=== PATIENT | female | born 1965 | race American Indian/Alaskan Native ===

== ENCOUNTER 2019-06-22 15:36 | Emergency (ER) | payer OTHER ==
[2019-06-22 16:28] LABS: Basophils # (Auto) 0.1 K/mm3 (0.0-0.1); Basophils % (Auto) 0.6 % (0.0-1.8); Eosinophils % (Auto) 0.1 % (0.0-4.3); Hematocrit 44.6 % (30.3-42.9); Hemoglobin 15.1 gm/dl (10.1-14.3); Lymphocytes # (Auto) 1.5 K/mm3 (1.2-5.4); Lymphocytes % (Auto) 13.4 % (13.4-35.0); Mean Corpuscular HGB Conc 34 % (30-34); Mean Corpuscular Volume 92 fl (79-97); Monocytes # (Auto) 0.4 K/mm3 (0.0-0.8); Platelet Count 320 K/mm3 (140-440); Red Blood Count 4.84 M/mm3 (3.65-5.03)
[2019-06-22] MEDS ORDERED: ATIVAN IV STA (16:35)
--- NOTE | 2019-06-22 16:36 | Emergency Department Report ---
ED General Adult HPI - General Chief complaint: Altered Mental Status Stated complaint: NERVE PAIN Time Seen by Provider: 06/22/19 16:01 Source: patient, family, EMS (EMS documentation not available at the time of chart dictation), RN notes reviewed Mode of arrival: Wheelchair Limitations: Altered Mental Status, Physical Limitation - History of Present Illness Initial comments: This is a 53-year-old female. The patient is not known to this provider p reviously. The patient typically follows with the [facility]. History obtained from the patient's daughter, as the patient is altered, and not able to provide much history. As per the patient's daughter, the patient has been having " butt pain." Apparently, the pain has been radiating to her right toe. The patient was seen at another hospital this past Saturday, and was purportedly prescribed baclofen. The patient also takes lisinopril. The patient's daughter states that there are no other new or different medications. The patient cannot describe the nature of her pain to me she cannot describe exacerbating or relieving factors. When asked open-ended underclothes ended questions, she simply states "my butt hurts." The patient's daughter is not sure the patient's last known well time. She thinks that the patient had a normal conversation sometime between 9 and 10:00 this morning. No fevers, loss of consciousness, vomiting, urinary symptoms, diarrhea that the family is aware of. -: unknown Radiation: other Quality: other Consistency: other Improves with: rest Worsens with: other - Related Data Previous Rx's Medication Instructions Recorded Last Taken Type Butalb/Acetamin/Caff 50-325-40 1 each PO Q4H PRN #20 tablet 02/21/15 Unknown Rx [Fioricet] Lisinopril [Zestril TAB] 20 mg PO QDAY #30 tablet 02/21/15 Unknown Rx Allergies Allergy/AdvReac Type Severity Reaction Status Date / Time No Known Allergies Allergy Verified 12/28/14 09:00 ED Review of Systems ROS: Stated complaint: NERVE PAIN Other details as noted in HPI Comment: Unobtainable due to pts medical conditions Musculoskeletal: back pain Neurological: confusion Psychiatric: other (altered mental status) ED Past Medical Hx - Past Medical History Hx Hypertension: Yes - Surgical History Additional Surgical History: RIGHT ANKLE SURGERY/ FX - Social History Smoking Status: Unknown if ever smoked Substance Use Type: None - Medications Home Medications: Home Medications Medication Instructions Recorded Confirmed Last Taken Type Butalb/Acetamin/Caff 50-325-40 1 each PO Q4H PRN #20 tablet 02/21/15 Unknown Rx [Fioricet] Lisinopril [Zestril TAB] 20 mg PO QDAY #30 tablet 02/21/15 Unknown Rx ED Physical Exam - General Limitations: Altered Mental Status General appearance: alert, anxious, in distress, obese - Head Head exam: Present: atraumatic, normocephalic - Eye Eye exam: Present: normal appearance, EOMI - ENT ENT exam: Present: normal exam, normal orophraynx, mucous membranes moist, normal external ear exam - Neck Neck exam: Present: normal inspection, full ROM. Absent: tenderness, meningismus - Respiratory Respiratory exam: Present: normal lung sounds bilaterally. Absent: respiratory distress - Cardiovascular Cardiovascular Exam: Present: regular rate, normal rhythm, tachycardia, normal heart sounds. Absent: bradycardia, irregular rhythm, systolic murmur, diastolic murmur, rubs, gallop - GI/Abdominal GI/Abdominal exam: Present: soft. Absent: distended, tenderness, guarding, pulsatile mass - Rectal Rectal exam: Present: normal inspection (chaperoned by nurse Ela Bran) - Extremities Exam Extremities exam: Present: normal inspection, other (2+ pulses noted in the bilateral upper, lower extremities. There is no long bony tenderness. The pelvis is stable. Muscular compartments are soft.). Absent: pedal edema, joint swelling, calf tenderness - Back Exam Back exam: Present: normal inspection. Absent: tenderness, CVA tenderness (L), paraspinal tenderness, vertebral tenderness - Neurological Exam Neurological exam: Present: altered, other (patient moving 4 extremities spontaneously. Sensation intact to pinch 4 extremities. There is no facial droop. The tongue is midline. Nonsensical speech.) - Psychiatric Psychiatric exam: Present: anxious - Skin Skin exam: Present: warm, dry, intact, normal color. Absent: rash ED Course Vital Signs 06/22/19 06/22/19 06/22/19 15:47 16:05 17:02 Temperature 98.9 F Pulse Rate 103 H 106 H 81 Respiratory 20 16 16 Rate Blood Pressure 100/68 Blood Pressure 109/93 160/99 [Right] O2 Sat by Pulse 98 100 100 Oximetry 08/19/19 08/19/19 18:05 20:00 Temperature Pulse Rate 88 79 Respiratory 16 15 Rate Blood Pressure Blood Pressure 168/99 133/83 [Right] O2 Sat by Pulse 100 95 Oximetry - Reevaluation(s) Reevaluation #1: 06/22/19 17:53 Differential diagnosis, including but not limited to: Intracranial lesion, toxic encephalopathy, metabolic encephalopathy, infectious cephalopathy, medication induced encephalopathy, conversion disorder, stroke, pneumonia, urinary tract infection Assessment and plan: 53-year-old female with altered mental status, nonsensical thought process, moving 4 extremities, no fever, no neck stiffness, recently started baclofen, muscular compartments soft, no obvious clonus Unlikely to be ischemic stroke, however, given altered mental status and nonsensical speech, stroke called overhead, patient presents more than 4.5 hours after explicit last known well time, therefore, she is not a TPA candidate. Consulting stroke neurology, Dr. Ela Colmenares has interviewed the patient and agrees that she is not a TPA candidate. He does recommend emergent CT angiogram of the head and neck to exclude large vessel occlusion. Patient does not have the ability to provide informed consent. The patient's daughter is at the bedside. We talked about the risks, benefits, alternatives, including potential risk for contrast-induced renal nephropathy. Patient will be given IV fluids, the patient's daughter has provided informed written and verbal consent for CT angiogram of the head and neck. CT scan of the brain negative for acute disease, CT scan of the abdomen and pelvis negative for acute disease, urinalysis is not consistent with urinary tract infection, screening laboratory studies pending at this time. Depending on imaging studies, patient will be admitted to this hospital, or we will transfer for endovascular intervention. 06/22/19 17:54 Reevaluation #2: 06/22/19 18:32 xr chest negative Reevaluation #3: 06/22/19 19:13 CTA HEAD NECK negative for acute disease, large vessel occlusion Reevaluation #4: 06/22/19 19:28 d/w [facility] physician coordinator, Dr Le, who will contact her hospitalist team and may arrange transfer to one of their facilities Reevaluation #5: 06/22/19 19:37 Dr Francis will be accepting the patient to [facility], [place]. The patient at this point in time is medically suitable for transportation/transfer. Patient will be transferred to the aforementioned receiving facility as per the policy and procedure of her insurance companies. - Consultations Consultation #1: 06/23/19 01:28 Discussed laboratory findings, CT scan findings with patient's family. Discussed the presence of marijuana in the urine drug screen, and specifically advised that patient avoid exposure to cannabis and recreational substances once her encephalopathy episode has resolved. Extensive discussion with family regarding patient's chronic pain, and we recommended follow-up with an outpatient pain specialist once her acute encephalopathy has resolved. Patient reportedly has long-term pain that is refractory to multiple modalities of treatment, we will defer to a pain specialist and her primary care doctor to further manage this. ED Medical Decision Making - Lab Data Result diagrams: 06/22/19 16:11 06/22/19 16:11 Vital Signs 06/22/19 15:47 Temperature 98.9 F Pulse Rate 103 H Respiratory 20 Rate Blood Pressure 100/68 O2 Sat by Pulse 98 Oximetry Lab Results 06/22/19 06/22/19 06/22/19 Range/Units 16:05 16:11 16:11 WBC 11.1 H (4.5-11.0) K/mm3 RBC 4.84 (3.65-5.03) M/mm3 Hgb 15.1 H (10.1-14.3) gm/dl Hct 44.6 H (30.3-42.9) % MCV 92 (79-97) fl MCH 31 (28-32) pg MCHC 34 (30-34) % RDW 15.0 (13.2-15.2) % Plt Count 320 (140-440) K/mm3 Lymph % (Auto) 13.4 (13.4-35.0) % [place] % (Auto) 4.0 (0.0-7.3) % Eos % (Auto) 0.1 (0.0-4.3) % Baso % (Auto) 0.6 (0.0-1.8) % Lymph # 1.5 (1.2-5.4) K/mm3 [place] # 0.4 (0.0-0.8) K/mm3 Eos # 0.0 (0.0-0.4) K/mm3 Baso # 0.1 (0.0-0.1) K/mm3 Seg Neutrophils % 81.9 H (40.0-70.0) % Seg Neutrophils # 9.1 H (1.8-7.7) K/mm3 PT (12.2-14.9) Sec. INR (0.87-1.13) APTT (24.2-36.6) Sec. Thrombin Time (15.1-19.6) Sec. Sodium 143 (137-145) mmol/L Potassium 4.1 (3.6-5.0) mmol/L Chloride 102.3 (98-107) mmol/L Carbon Dioxide 20 L (22-30) mmol/L Anion Gap 25 mmol/L BUN 31 H (7-17) mg/dL Creatinine 1.4 H (0.7-1.2) mg/dL Estimated GFR 48 ml/min BUN/Creatinine Ratio 22 % Glucose 152 H (65-100) mg/dL POC Glucose 136 H (70-105) Lactic Acid (0.7-2.0) mmol/L Calcium 10.9 H (8.4-10.2) mg/dL Magnesium (1.7-2.3) mg/dL Total Bilirubin 0.60 (0.1-1.2) mg/dL AST 23 (5-40) units/L ALT 20 (7-56) units/L Alkaline Phosphatase 72 (35-129) units/L Ammonia (25-60) umol/L Total Creatine Kinase (30-135) units/L CK-MB (CK-2) (0.0-4.0) ng/mL CK-MB (CK-2) Rel Index (0-4) Troponin T (0.00-0.029) ng/mL Total Protein 8.6 H (6.3-8.2) g/dL Albumin 5.2 H (3.9-5) g/dL Albumin/Globulin Ratio 1.5 % TSH (0.270-4.200) mlU/mL Urine Color (Yellow) Urine Turbidity (Clear) Urine pH (5.0-7.0) Ur Specific [place] (1.003-1.030) Urine Protein (Negative) mg/dL Urine Glucose (UA) (Negative) mg/dL Urine Ketones (Negative) mg/dL Urine Blood (Negative) Urine Nitrite (Negative) Urine Bilirubin (Negative) Urine Urobilinogen (<2.0) mg/dL Ur Leukocyte Esterase (Negative) Urine WBC (Auto) (0.0-6.0) /HPF Urine RBC (Auto) (0.0-6.0) /HPF U Epithel Cells (Auto) (0-13.0) /HPF Urine Mucus /HPF Urine Opiates Screen Urine Methadone Screen Ur Barbiturates Screen Ur Phencyclidine Scrn Ur Amphetamines Screen U Benzodiazepines Scrn Urine Cocaine Screen 06/22/19 06/22/19 06/22/19 Range/Units 16:11 16:11 16:59 WBC (4.5-11.0) K/mm3 RBC (3.65-5.03) M/mm3 Hgb (10.1-14.3) gm/dl Hct (30.3-42.9) % MCV (79-97) fl MCH (28-32) pg MCHC (30-34) % RDW (13.2-15.2) % Plt Count (140-440) K/mm3 Lymph % (Auto) (13.4-35.0) % [place] % (Auto) (0.0-7.3) % Eos % (Auto) (0.0-4.3) % Baso % (Auto) (0.0-1.8) % Lymph # (1.2-5.4) K/mm3 [place] # (0.0-0.8) K/mm3 Eos # (0.0-0.4) K/mm3 Baso # (0.0-0.1) K/mm3 Seg Neutrophils % (40.0-70.0) % Seg Neutrophils # (1.8-7.7) K/mm3 PT 12.3 (12.2-14.9) Sec. INR 0.94 (0.87-1.13) APTT 24.2 (24.2-36.6) Sec. Thrombin Time 19.0 (15.1-19.6) Sec. Sodium (137-145) mmol/L Potassium (3.6-5.0) mmol/L Chloride (98-107) mmol/L Carbon Dioxide (22-30) mmol/L Anion Gap mmol/L BUN (7-17) mg/dL Creatinine (0.7-1.2) mg/dL Estimated GFR ml/min BUN/Creatinine Ratio % Glucose (65-100) mg/dL POC Glucose (70-105) Lactic Acid (0.7-2.0) mmol/L Calcium (8.4-10.2) mg/dL Magnesium (1.7-2.3) mg/dL Total Bilirubin (0.1-1.2) mg/dL AST (5-40) units/L ALT (7-56) units/L Alkaline Phosphatase (35-129) units/L Ammonia (25-60) umol/L Total Creatine Kinase (30-135) units/L CK-MB (CK-2) (0.0-4.0) ng/mL CK-MB (CK-2) Rel Index (0-4) Troponin T < 0.010 (0.00-0.029) ng/mL Total Protein (6.3-8.2) g/dL Albumin (3.9-5) g/dL Albumin/Globulin Ratio % TSH (0.270-4.200) mlU/mL Urine Color (Yellow) Urine Turbidity (Clear) Urine pH (5.0-7.0) Ur Specific [place] (1.003-1.030) Urine Protein (Negative) mg/dL Urine Glucose (UA) (Negative) mg/dL Urine Ketones (Negative) mg/dL Urine Blood (Negative) Urine Nitrite (Negative) Urine Bilirubin (Negative) Urine Urobilinogen (<2.0) mg/dL Ur Leukocyte Esterase (Negative) Urine WBC (Auto) (0.0-6.0) /HPF Urine RBC (Auto) (0.0-6.0) /HPF U Epithel Cells (Auto) (0-13.0) /HPF Urine Mucus /HPF Urine Opiates Screen Urine Methadone Screen Ur Barbiturates Screen Ur Phencyclidine Scrn Ur Amphetamines Screen U Benzodiazepines Scrn Urine Cocaine Screen 06/22/19 06/22/19 06/22/19 Range/Units 16:59 16:59 16:59 WBC (4.5-11.0) K/mm3 RBC (3.65-5.03) M/mm3 Hgb (10.1-14.3) gm/dl Hct (30.3-42.9) % MCV (79-97) fl MCH (28-32) pg MCHC (30-34) % RDW (13.2-15.2) % Plt Count (140-440) K/mm3 Lymph % (Auto) (13.4-35.0) % [place] % (Auto) (0.0-7.3) % Eos % (Auto) (0.0-4.3) % Baso % (Auto) (0.0-1.8) % Lymph # (1.2-5.4) K/mm3 [place] # (0.0-0.8) K/mm3 Eos # (0.0-0.4) K/mm3 Baso # (0.0-0.1) K/mm3 Seg Neutrophils % (40.0-70.0) % Seg Neutrophils # (1.8-7.7) K/mm3 PT (12.2-14.9) Sec. INR (0.87-1.13) APTT (24.2-36.6) Sec. Thrombin Time (15.1-19.6) Sec. Sodium (137-145) mmol/L Potassium (3.6-5.0) mmol/L Chloride (98-107) mmol/L Carbon Dioxide (22-30) mmol/L Anion Gap mmol/L BUN (7-17) mg/dL Creatinine (0.7-1.2) mg/dL Estimated GFR ml/min BUN/Creatinine Ratio % Glucose (65-100) mg/dL POC Glucose (70-105) Lactic Acid (0.7-2.0) mmol/L Calcium (8.4-10.2) mg/dL Magnesium 2.50 H (1.7-2.3) mg/dL Total Bilirubin (0.1-1.2) mg/dL AST (5-40) units/L ALT (7-56) units/L Alkaline Phosphatase (35-129) units/L Ammonia 72.0 H (25-60) umol/L Total Creatine Kinase 272 H (30-135) units/L CK-MB (CK-2) 3.5 (0.0-4.0) ng/mL CK-MB (CK-2) Rel Index 1.2 (0-4) Troponin T (0.00-0.029) ng/mL Total Protein (6.3-8.2) g/dL Albumin (3.9-5) g/dL Albumin/Globulin Ratio % TSH 0.284 (0.270-4.200) mlU/mL Urine Color (Yellow) Urine Turbidity (Clear) Urine pH (5.0-7.0) Ur Specific [place] (1.003-1.030) Urine Protein (Negative) mg/dL Urine Glucose (UA) (Negative) mg/dL Urine Ketones (Negative) mg/dL Urine Blood (Negative) Urine Nitrite (Negative) Urine Bilirubin (Negative) Urine Urobilinogen (<2.0) mg/dL Ur Leukocyte Esterase (Negative) Urine WBC (Auto) (0.0-6.0) /HPF Urine RBC (Auto) (0.0-6.0) /HPF U Epithel Cells (Auto) (0-13.0) /HPF Urine Mucus /HPF Urine Opiates Screen Urine Methadone Screen Ur Barbiturates Screen Ur Phencyclidine Scrn Ur Amphetamines Screen U Benzodiazepines Scrn Urine Cocaine Screen 06/22/19 06/22/19 06/22/19 Range/Units 16:59 17:15 17:15 WBC (4.5-11.0) K/mm3 RBC (3.65-5.03) M/mm3 Hgb (10.1-14.3) gm/dl Hct (30.3-42.9) % MCV (79-97) fl MCH (28-32) pg MCHC (30-34) % RDW (13.2-15.2) % Plt Count (140-440) K/mm3 Lymph % (Auto) (13.4-35.0) % [place] % (Auto) (0.0-7.3) % Eos % (Auto) (0.0-4.3) % Baso % (Auto) (0.0-1.8) % Lymph # (1.2-5.4) K/mm3 [place] # (0.0-0.8) K/mm3 Eos # (0.0-0.4) K/mm3 Baso # (0.0-0.1) K/mm3 Seg Neutrophils % (40.0-70.0) % Seg Neutrophils # (1.8-7.7) K/mm3 PT (12.2-14.9) Sec. INR (0.87-1.13) APTT (24.2-36.6) Sec. Thrombin Time (15.1-19.6) Sec. Sodium (137-145) mmol/L Potassium (3.6-5.0) mmol/L Chloride (98-107) mmol/L Carbon Dioxide (22-30) mmol/L Anion Gap mmol/L BUN (7-17) mg/dL Creatinine (0.7-1.2) mg/dL Estimated GFR ml/min BUN/Creatinine Ratio % Glucose (65-100) mg/dL POC Glucose (70-105) Lactic Acid 1.90 (0.7-2.0) mmol/L Calcium (8.4-10.2) mg/dL Magnesium (1.7-2.3) mg/dL Total Bilirubin (0.1-1.2) mg/dL AST (5-40) units/L ALT (7-56) units/L Alkaline Phosphatase (35-129) units/L Ammonia (25-60) umol/L Total Creatine Kinase (30-135) units/L CK-MB (CK-2) (0.0-4.0) ng/mL CK-MB (CK-2) Rel Index (0-4) Troponin T (0.00-0.029) ng/mL Total Protein (6.3-8.2) g/dL Albumin (3.9-5) g/dL Albumin/Globulin Ratio % TSH (0.270-4.200) mlU/mL Urine Color Yellow (Yellow) Urine Turbidity Clear (Clear) Urine pH 5.0 (5.0-7.0) Ur Specific [place] 1.017 (1.003-1.030) Urine Protein 30 mg/dl (Negative) mg/dL Urine Glucose (UA) Neg (Negative) mg/dL Urine Ketones Neg (Negative) mg/dL Urine Blood Sm (Negative) Urine Nitrite Neg (Negative) Urine Bilirubin Neg (Negative) Urine Urobilinogen < 2.0 (<2.0) mg/dL Ur Leukocyte Esterase Neg (Negative) Urine WBC (Auto) 1.0 (0.0-6.0) /HPF Urine RBC (Auto) 1.0 (0.0-6.0) /HPF U Epithel Cells (Auto) < 1.0 (0-13.0) /HPF Urine Mucus Few /HPF Urine Opiates Screen Presumptive negative Urine Methadone Screen Presumptive negative Ur Barbiturates Screen Presumptive negative Ur Phencyclidine Scrn Presumptive negative Ur Amphetamines Screen Presumptive negative U Benzodiazepines Scrn Presumptive negative Urine Cocaine Screen Presumptive negative - EKG Data -: EKG Interpreted by Me Rate: normal, tachycardia - EKG Data When compared to previous EKG there are: previous EKG unavailable 06/22/19 17:59 This is a sinus tachycardia, 105 bpm, normal axis, QTC 444 ms, atrial enl argement, left ventricular hypertrophy, motion artifact, the EKG is abnormal, the EKG is not consistent with ST elevation myocardial infarction. - Radiology Data Radiology results: pending, report reviewed, image reviewed Noncontrast CT scan of the brain is negative for acute disease. Noncontrast CT scan of the abdomen and pelvis is negative for acute disease. Angiogram of the head and neck: Critical Care Time: Yes Critical care time in (mins) excluding proc time.: 35 Critical care attestation.: If time is entered above; I have spent that time in minutes in the direct care of this critically ill patient, excluding procedure time. ED Disposition Clinical Impression: Confusion, Hyperammonemia, DANIELLE (acute kidney injury) Disposition: DC/TX- [facility] IP Is pt being admited?: No Does the pt Need Aspirin: Yes Condition: Stable Referrals: ADAN MARTÍNEZ MD [Primary Care Provider] - 3-5 Days
[2019-06-22 16:39] LABS: INR 0.94 (0.87-1.13)
[2019-06-22 16:40] LABS: Partial Thromboplastin Time 24.2 Sec. (24.2-36.6)
[2019-06-22 16:52] LABS: Albumin 5.2 g/dL (3.9-5); Calcium 10.9 mg/dL (8.4-10.2)
[2019-06-22] MEDS ORDERED: HALDOL IM STA (16:58)
[2019-06-22] MEDS ORDERED: HALDOL ONE (17:01)
[2019-06-22] MEDS ORDERED: NACL 0.9% 1000 ML 2,000 ML IV ONE (17:07)
--- NOTE | 2019-06-22 17:08 | Emergency Department Report ---
ED Neuro Deficit HPI - General Chief Complaint: Altered Mental Status Stated Complaint: NERVE PAIN Time Seen by Provider: 06/22/19 16:01 Source: patient, EMS Mode of arrival: Wheelchair Limitations: No Limitations - History of Present Illness Initial Comments: [facility] Date of Service: 06/22/2019 16:33:50 Impression: RO Acute Ischemic Stroke Mechanism of Stroke: Not Clear Metrics: Last Known Well: 06/22/2019 10:00:29 [facility] Notification Time: 06/22/2019 16:32:37 Arrival Time: 06/22/2019 15:36:06 Stamp Time: 06/22/2019 16:33:50 Time First Login Attempt: 06/22/2019 16:40:21 Video Start Time: 06/22/2019 16:40:21 Symptoms: confusion; right toe numbness NIHSS Start Assessment Time: 06/22/2019 16:54:34 Patient is not a candidate for tPA. Patient was not deemed candidate for tPA thrombolytics because of Last Well Known above 4.5 hours. Video End Time: 06/22/2019 16:58:33 CT head was neg for hemorrhage per my read - formal read pending. Advanced imaging CTA head and neck obtained. Advanced imaging CTP obtained. ER physician not notified of the decision on thrombolytics management. Comments: acute onset confusion and AMS - encephalopathy favored over stroke, but given paucity of speech, I recommend vessel imaging with CTA head/neck if the daughter consents to potential kidney risk and need for sedation. Recommend admission for MRI brain. Our recommendations are outlined below. Recommendations: Initiate Aspirin 325 MG Daily if neg for hemorrhage on CT - none per my read Recommended Scan: MRI Head Lipid Panel to Be Obtained, if Not Done in the Last Three Months Therapies: Physical Therapy, Occupational Therapy, Speech Therapy Assessment When Applicable Dysphaghia Screen: Swallow Evaluation, Bedside NPO Until Swallow Evaluation DVT prophylaxis: Lovenox or LMW Heparin Disposition: Follow up with Teleneurology Follow up Sign Out: Discussed with Emergency Department Provider History of Present Illness: Patient is a 53 years old Female. Patient was brought by EMS for symptoms of confusion; right toe numbness 53 yo woman with a hx of sciatic pain who had severe right buttock pain shooting down the leg. She has developed numbness in her toes. No other focal weakness/numbness in her limbs. Today, she has been 'out of it'. Her daughter states that she was yelling in pain, repeating the same thing over and over. She was LSN at approx 1000 this am. She takes no blood thinners. She was recently started on baclofen. CT head was not reviewed. Examination: 1A: Level of Consciousness - Requires repeated stimulation to arouse + 2 1B: Ask Month and Age - Aphasic + 2 1C: Blink Eyes & Squeeze Hands - Performs 0 Tasks + 2 2: Test Horizontal Extraocular Movements - Normal + 0 3: Test Visual Childs - No Visual Loss + 0 4: Test Facial Palsy (Use Grimace if Obtunded) - Normal symmetry + 0 5A: Test Left Arm Motor Drift - No Drift for 10 Seconds + 0 5B: Test Right Arm Motor Drift - No Drift for 10 Seconds + 0 6A: Test Left Leg Motor Drift - No Drift for 5 Seconds + 0 6B: Test Right Leg Motor Drift - No Drift for 5 Seconds + 0 7: Test Limb Ataxia (FNF/Heel-Leach) - No Ataxia + 0 8: Test Sensation - Normal; No sensory loss + 0 9: Test Language/Aphasia - Mute/Global Aphasia: No Usable Speech/Auditory Comprehension + 3 10: Test Dysarthria - Mute/Anarthric + 2 11: Test Extinction/Inattention - No abnormality + 0 NIHSS Score: 11 Patient was informed the Neurology Consult would happen via TeleHealth consult by way of interactive audio and video telecommunications and consented to receiving care in this manner. Due to the immediate potential for life-threatening deterioration due to underlying acute neurologic illness, I spent 35 minutes providing critical care. This time includes time for face to face visit via telemedicine, review of medical records, imaging studies and discussion of findings with providers, the patient and/or family. Dr Srikanth Colmenares [facility] - Related Data Home Medications: Previous Rx's Medication Instructions Recorded Last Taken Type Butalb/Acetamin/Caff 50-325-40 1 each PO Q4H PRN #20 tablet 02/21/15 Unknown Rx [Fioricet] Lisinopril [Zestril TAB] 20 mg PO QDAY #30 tablet 02/21/15 Unknown Rx Allergies/Adverse Reactions: Allergies Allergy/AdvReac Type Severity Reaction Status Date / Time No Known Allergies Allergy Verified 12/28/14 09:00 ED Review of Systems ROS: Stated complaint: NERVE PAIN Other details as noted in HPI ED Past Medical Hx - Past Medical History Hx Hypertension: Yes - Surgical History Additional Surgical History: RIGHT ANKLE SURGERY/ FX - Social History Smoking Status: Unknown if ever smoked Substance Use Type: None - Medications Home Medications: Home Medications Medication Instructions Recorded Confirmed Last Taken Type Butalb/Acetamin/Caff 50-325-40 1 each PO Q4H PRN #20 tablet 02/21/15 Unknown Rx [Fioricet] Lisinopril [Zestril TAB] 20 mg PO QDAY #30 tablet 02/21/15 Unknown Rx ED Neuro Physical Exam - General Limitations: No Limitations Suspected Stroke: Yes - NIHSS Assessment Interval: Baseline 1a. Level of Consciousness: resp stimuli/obtunded 1b. LOC Questions: answers no questions correctly 1c. LOC Commands: performs no tasks correctly 2. Best Gaze: normal 3. Visual: no visual loss 4. Facial Palsy: normal symmetrical movement 5b. Motor Arm Right: no drift 5a. Motor Arm Left: no drift 6a. Motor Leg Left: no drift 6b. Motor Leg Right: no drift 7. Limb Ataxia: absent 8. Sensory: normal 9. Best Language: mute/global aphasia 10. Dysarthria: severe dysarthria 11. Extinction/Inattention: no abnormality Total Score: 11 Stroke Severity: Moderate Stroke ED Course Vital Signs 06/22/19 15:47 Temperature 98.9 F Pulse Rate 103 H Respiratory 20 Rate Blood Pressure 100/68 O2 Sat by Pulse 98 Oximetry - Lab Data Result diagrams: 06/22/19 16:11 06/22/19 16:11 Lab Results 06/22/19 06/22/19 06/22/19 Range/Units 16:05 16:11 16:11 WBC 11.1 H (4.5-11.0) K/mm3 RBC 4.84 (3.65-5.03) M/mm3 Hgb 15.1 H (10.1-14.3) gm/dl Hct 44.6 H (30.3-42.9) % MCV 92 (79-97) fl MCH 31 (28-32) pg MCHC 34 (30-34) % RDW 15.0 (13.2-15.2) % Plt Count 320 (140-440) K/mm3 Lymph % (Auto) 13.4 (13.4-35.0) % [place] % (Auto) 4.0 (0.0-7.3) % Eos % (Auto) 0.1 (0.0-4.3) % Baso % (Auto) 0.6 (0.0-1.8) % Lymph # 1.5 (1.2-5.4) K/mm3 [place] # 0.4 (0.0-0.8) K/mm3 Eos # 0.0 (0.0-0.4) K/mm3 Baso # 0.1 (0.0-0.1) K/mm3 Seg Neutrophils % 81.9 H (40.0-70.0) % Seg Neutrophils # 9.1 H (1.8-7.7) K/mm3 PT (12.2-14.9) Sec. INR (0.87-1.13) APTT (24.2-36.6) Sec. Sodium 143 (137-145) mmol/L Potassium 4.1 (3.6-5.0) mmol/L Chloride 102.3 (98-107) mmol/L Carbon Dioxide 20 L (22-30) mmol/L Anion Gap 25 mmol/L BUN 31 H (7-17) mg/dL Creatinine 1.4 H (0.7-1.2) mg/dL Estimated GFR 48 ml/min BUN/Creatinine Ratio 22 % Glucose 152 H (65-100) mg/dL POC Glucose 136 H (70-105) Calcium 10.9 H (8.4-10.2) mg/dL Total Bilirubin 0.60 (0.1-1.2) mg/dL ALT 20 (7-56) units/L Alkaline Phosphatase 72 (35-129) units/L Troponin T (0.00-0.029) ng/mL Total Protein 8.6 H (6.3-8.2) g/dL Albumin 5.2 H (3.9-5) g/dL Albumin/Globulin Ratio 1.5 % 06/22/19 06/22/19 Range/Units 16:11 16:11 WBC (4.5-11.0) K/mm3 RBC (3.65-5.03) M/mm3 Hgb (10.1-14.3) gm/dl Hct (30.3-42.9) % MCV (79-97) fl MCH (28-32) pg MCHC (30-34) % RDW (13.2-15.2) % Plt Count (140-440) K/mm3 Lymph % (Auto) (13.4-35.0) % [place] % (Auto) (0.0-7.3) % Eos % (Auto) (0.0-4.3) % Baso % (Auto) (0.0-1.8) % Lymph # (1.2-5.4) K/mm3 [place] # (0.0-0.8) K/mm3 Eos # (0.0-0.4) K/mm3 Baso # (0.0-0.1) K/mm3 Seg Neutrophils % (40.0-70.0) % Seg Neutrophils # (1.8-7.7) K/mm3 PT 12.3 (12.2-14.9) Sec. INR 0.94 (0.87-1.13) APTT 24.2 (24.2-36.6) Sec. Sodium (137-145) mmol/L Potassium (3.6-5.0) mmol/L Chloride (98-107) mmol/L Carbon Dioxide (22-30) mmol/L Anion Gap mmol/L BUN (7-17) mg/dL Creatinine (0.7-1.2) mg/dL Estimated GFR ml/min BUN/Creatinine Ratio % Glucose (65-100) mg/dL POC Glucose (70-105) Calcium (8.4-10.2) mg/dL Total Bilirubin (0.1-1.2) mg/dL ALT (7-56) units/L Alkaline Phosphatase (35-129) units/L Troponin T < 0.010 (0.00-0.029) ng/mL Total Protein (6.3-8.2) g/dL Albumin (3.9-5) g/dL Albumin/Globulin Ratio % Critical care attestation.: If time is entered above; I have spent that time in minutes in the direct care of this critically ill patient, excluding procedure time. ED Disposition Clinical Impression: Confusion Disposition: [id number] OP ADMIT IP TO THIS HOSP Is pt being admited?: Yes Condition: Stable
--- NOTE | 2019-06-22 17:15 | Cat Scan Report ---
CT HEAD WITHOUT CONTRAST INDICATION / CLINICAL INFORMATION: ams. Altered mental status. TECHNIQUE: All CT scans at this location are performed using CT dose reduction for ALARA by means of automated e xposure control. COMPARISON: Head CT 04/05/2013 FINDINGS: HEMORRHAGE: No evidence of intracranial hemorrhage or extra-axial fluid collection. EXTRA-AXIAL SPACES: Cortical sulci, sylvian fissures and basilar cisterns have an unremarkable appear ance. VENTRICULAR SYSTEM: The ventricular system is of normal size and configuration. CEREBRAL PARENCHYMA: Bilaterally symmetrical dilated perivascular spaces are observed in the inferior margins of the putamen. These are stable findings. No mass effect and areas of abnormal brain parenc hymal attenuation are identified. There is no indication of recent infarction. MIDLINE SHIFT OR HERNIATION: There is no mass effect. CEREBELLUM / BRAINSTEM: Brainstem and cerebellum have an unremarkable appearance. INTRACRANIAL VESSELS:No abnormalities are identified on this noncontrast head CT. ORBITS: visualized portions of the orbits have an unremarkable appearance. SOFT TISSUES of HEAD: No significant abnormality. CALVARIUM: Evaluation of bone windows reveals no abnormalities. PARANASAL SINUSES / MASTOID AIR CELLS: Paranasal sinuses are free from inflammatory mucosal disease. Mastoid air cells are normally pneumatized. ADDITIONAL FINDINGS: None. IMPRESSION: 1. No acute intracranial abnormality. No interval change in comparison to previous study. Signer Name: Denis Tejeda MD Signed: 06/22/2019 5:10 PM Workstation Name: [email or web address] [id number]
--- NOTE | 2019-06-22 17:15 | Cat Scan Report ---
CT ABDOMEN AND PELVIS WITHOUT CONTRAST INDICATION: Altered mental status. Back pain. COMPARISON: No relevant prior imaging study available. TECHNIQUE: Axial, coronal and sagittal CT imaging of the abdomen and pelvis was performed without co ntrast. Lack of intravenous contrast limits evaluation of the vascular and solid organs. All CT sca ns at this location are performed using CT dose reduction for ALARA by means of automated exposure co ntrol. FINDINGS: LOWER CHEST: No significant abnormality. LIVER: No significant abnormality. BILIARY: There is a large stone along the gallbladder neck measuring 2.8 cm without evidence of rosie cystitis. No biliary ductal dilatation is seen. PANCREAS: No significant abnormality. SPLEEN: No significant abnormality. ADRENALS: No significant abnormality. KIDNEYS AND URETERS: Multiple probable left parapelvic renal cysts measure up to 2.6 cm. No stones or suspicious renal lesions are identified. There is no hydroureteronephrosis. GI TRACT: There is a small to moderate hiatal hernia without associated inflammation. The stomach is otherwise unremarkable. No significant abnormality of the small bowel. Colonic diverticulosis is note d without evidence of diverticulitis. Unremarkable appendix. PERITONEUM: No free fluid. No free air. No fluid collection. LYMPH NODES: No significant adenopathy. VASCULATURE: No significant abnormality. URINARY BLADDER: No significant abnormality. REPRODUCTIVE ORGANS: The uterus is enlarged with multiple probable fibroids, measuring up to 5 cm mary ng the fundus. No additional significant abnormality. ADDITIONAL FINDINGS: None. SKELETAL SYSTEM: No acute abnormality. There are degenerative changes of the spine. IMPRESSION: 1. No acute abnormality of the abdomen or pelvis. 2. Additional findings as above. Signer Name: Anthony Rodríguez MD Signed: 06/22/2019 5:11 PM Workstation Name: [email or web address]
[2019-06-22 17:33] LABS: Bilirubin,Urine NEG (Negative); Blood,Urine SM (Negative); Color,Urine Yellow (Yellow); Mucus,Urine FEW /HPF; Urobilinogen,Urine < 2.0 mg/dL (<2.0)
[2019-06-22 17:55] LABS: Amphetamine Screen,Urine PRESUMPTIVE NEGATIVE; Benzodiazepines Screen,Urine PRESUMPTIVE NEGATIVE; Cocaine Screen,Urine PRESUMPTIVE NEGATIVE; Methadone Screen,Urine PRESUMPTIVE NEGATIVE; Opiate Screen,Urine PRESUMPTIVE NEGATIVE
[2019-06-22 17:55] LABS: Creatine Kinase MB 3.5 ng/mL (0.0-4.0)
[2019-06-22] MEDS ORDERED: CEPHULAC PR STA (17:59)
[2019-06-22 18:21] LABS: Cannabinoid Screen,Urine PRESUMPTIVE POSITIVE
--- NOTE | 2019-06-22 18:41 | XRay Report ---
CHEST 1 VIEW INDICATION / CLINICAL INFORMATION: ams weak pneumnia. COMPARISON: 12/28/2014 FINDINGS: SUPPORT DEVICES: None. HEART / MEDIASTINUM: No significant abnormality. LUNGS / PLEURA: No significant pulmonary or pleural abnormality. No pneumothorax. ADDITIONAL FINDINGS: No significant additional findings. IMPRESSION: 1. No acute pulmonary disease. No interval change from prior exam. Signer Name: Jacqueline Lyon MD Signed: 06/22/2019 6:37 PM Workstation Name: [id number]
--- NOTE | 2019-06-22 18:53 | Cat Scan Report ---
CTA NECK WITH CONTRAST HISTORY: Change in mental status; speech disturbance COMPARISON: None. TECHNIQUE: Routine CTA of the neck was performed. 3-D/MIP reformats were postprocessed. Percentage s tenosis is determined by direct quantitative measurements of diseased internal carotid artery diamete r compared with normal distal internal carotid artery reference segments or by criteria similar to NA SCET where applicable. All CT scans at this location are performed using CT dose reduction for ALARA by means of automated exposure control. CONTRAST: 100 ml of Omnipaque 350 FINDINGS: Aortic arch: No significant abnormality. Cervical vertebral arteries: Minimal narrowing of the right vertebral origin . Left vertebral origin is normal. Extraosseous, foraminal, extraspinal segments of the vertebral arteries are normal. Common carotid arteries: No significant abnormality. Carotid bifurcations: Normal Cervical internal carotid arteries: No significant abnormality. Additional findings: None. IMPRESSION: Normal carotid bifurcations Signer Name: Araceli Lopez MD Signed: 06/22/2019 6:49 PM Workstation Name: [id number]
--- NOTE | 2019-06-22 18:57 | Cat Scan Report ---
CTA HEAD WITH CONTRAST HISTORY: Change in mental status; speech disturbances COMPARISON: None. TECHNIQUE: Routine non-contrast CT Head, CTA of the head and post-contrast CT Head are performed. 3-D /MIP reformats postprocessed. All CT scans at this location are performed using CT dose reduction for ALARA by means of automated exposure control. CONTRAST: 100 ml of Omnipaque 350 FINDINGS: CTA Head: Intracranial vertebral arteries: No significant abnormality. Basilar artery: No significant abnormality. Posterior cerebral arteries: No significant abnormality. Intracranial internal carotid arteries: No significant abnormality. Anterior cerebral arteries: No significant abnormality. Middle cerebral arteries: No significant abnormality. Dural venous sinuses:Not optimally opacified. No significant abnormality. Additional findings: None. IMPRESSION: Normal CTA of the brain. Signer Name: Araceli Lopez MD Signed: 06/22/2019 6:52 PM Workstation Name: [id number]
[2019-06-22] MEDS ORDERED: ASPIRIN PR ONE (19:39)
[2019-06-22 20:07] VITALS: BP 133/83
== END 2019-06-22 21:35 | disposition short-term general hospital (02) ==
LOC: ED 15:36
DX: R41.0 Disorientation, unspecified (principal); E72.4 Disorders of ornithine metabolism; N17.9 Acute kidney failure, unspecified; R41.82 Altered mental status, unspecified; M54.9 Dorsalgia, unspecified; R10.9 Unspecified abdominal pain; I10 Essential (primary) hypertension
CPT/HCPCS: 36415; 70450; 70496; 70498; 71045; 74176; 80053; 80307; 81001; 82140; 82550; 82553; 82962; 83735; 84443; 84484; 85025; 85610; 85670; 85730; 87040; 93005; 93010; 96361; 96372; 96374; 99291; J1630; J2060; J7030; Q9967; 80320; G0480